=== PATIENT | female | born 1990 | race Caucasian/White ===

== ENCOUNTER → 2021-10-22 13:03 | Outpatient (BNVA) | payer OTHER, SELFPAY | PROVIDERS: PCP Internal Medicine; Visit Provider Advanced Practice Midwife ==

== ENCOUNTER 2022-05-06 11:05 | Outpatient (REF) | payer OTHER, SELFPAY ==
[2022-05-06 18:14] LABS: CT PCR NOT DETECTED (Not Detect.); NG PCR NOT DETECTED (Not Detect.)
[2022-05-07 10:26] LABS: BV Int Neg Control Negative (Negative); BV Int Pos Control Positive (Positive)
[2022-05-11 17:02] LABS: HPV mRNA E6/E7 rflx Not Detected (Not Detected)
== END 2022-05-06 11:06 | disposition home or self-care (01) ==
LOC: HO.LAB 11:05
PROVIDERS: Visit Provider Advanced Practice Midwife
DX: Z01.419 Encounter for gynecological examination (general) (routine) without abnormal findings (principal); Z11.3 Encounter for screening for infections with a predominantly sexual mode of transmission; Z11.51 Encounter for screening for human papillomavirus (HPV)
CPT/HCPCS: 87480; 87491; 87510; 87591; 87624; 87660; 88142

== ENCOUNTER 2023-08-22 10:43 | Outpatient (AMB) | payer BC, SELFPAY ==
--- NOTE | 2023-08-22 10:44 | A.OFFVIS_ITS ---
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 She has been doing well on the pills and is not having any problems at all and in fact she likes how it regulates her. And she is not having any issues at all and no side effects and no issues with missed pills she is careful how she takes them. She finds it even helps her skin. She is sexually active though she has no worries about STIs. Her last Pap smear was April of 2022 and it was negative with negative HPV. 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 She has just changed insurance and will be seeing a new primary care provider because of that. She will reschedule her annual exam but in the meantime she did not want to run out of pills. She denies any headaches chest pain or leg pain and she knows what she would do if she did ever experience any of those things. [facility] Surgical History History of dental surgery Social History Alcohol intake: current Patient Tobacco Use Status: Never used Tobacco Female Reproductive History Menstrual Age of Menarche: 13 Date of last menstrual period: 08/12/23 control method: pills Assessment & Plan Assessment & Plan (1) Counseling for control, oral contraceptives: Code(s): Z30.09 - Encounter for other general counseling and advice on contraception Plan This is a tele visit to discuss patient's continuation on control pills she had a an annual exam scheduled for today but she started yesterday with the beginnings of a a cold and decided it was smarter and better to isolate and not share her germs. She has been doing well on the pills and is not having any problems at all and in fact she likes how it regulates her. And she is not having any issues at all and no side effects and no issues with missed pills she is careful how she takes them. She finds it even helps her skin. She is sexually active though she has no worries about STIs. Her last Pap smear was April of 2022 and it was negative with negative HPV. 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 She has just changed insurance and will be seeing a new primary care provider because of that. She will reschedule her annual exam but in the meantime she did not want to run out of pills. She denies any headaches chest pain or leg pain and she knows what she would do if she did ever experience any of those things. Reviewed all of the above in detail via this tele visit and prescription for another 3 months with 4 refills sent to her [facility] on [address] in [place]. She will reschedule her annual for when it is convenient.. Medications: Refilled desogestrel-ethinyl estradiol 0.15-0.03 mg (Apri) 1 tab PO DAILY 84 tabs 4RF Telehealth Telehealth Location of provider rendering services: practice address Location of patient: address on file Patient Identification confirmed using: Name, : Yes Telehealth method: video Patient verbally consented to treatment: Yes Patient verbally consented to billing insurance company: Yes Patient informed of any privacy concerns related to visit: Yes Minutes spent on Phone/Video with Pt.: 19 Coding Level of Care Code Tele Est Pt Level 3 (41154) Diagnoses Counseling for control, oral contraceptives Z30.09 Time Spent (min) 25 Comment 1 cr/ phone/video w pt,/5 charting.
== END 2023-08-22 13:45 | disposition home or self-care (01) ==
LOC: HO.HWS 10:43
PROVIDERS: PCP Internal Medicine Nephrology; Visit Provider Advanced Practice Midwife
DX: Z30.09 Encounter for other general counseling and advice on contraception (principal)
CPT/HCPCS: 99213

== ENCOUNTER → 2023-08-22 10:43 | Outpatient (BNVA) | payer BC, SELFPAY | PROVIDERS: PCP Internal Medicine Nephrology; Visit Provider Advanced Practice Midwife ==

== ENCOUNTER 2024-03-19 09:17 | Outpatient (AMB) | payer BC, SELFPAY ==
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
[2024-03-19 09:21] VITALS: BP 110/62
== END 2024-03-19 09:59 | disposition home or self-care (01) ==
PROVIDERS: PCP Internal Medicine Nephrology; Visit Provider Advanced Practice Midwife
DX: Z12.4 Encounter for screening for malignant neoplasm of cervix (principal); Z30.09 Encounter for other general counseling and advice on contraception; Z01.419 Encounter for gynecological examination (general) (routine) without abnormal findings
CPT/HCPCS: 99395

== ENCOUNTER → 2024-03-19 09:17 | Outpatient (BNVA) | payer BC, SELFPAY | PROVIDERS: PCP Internal Medicine Nephrology; Visit Provider Advanced Practice Midwife ==